=== PATIENT | female | born 2000 | race American Indian/Alaskan Native ===

== ENCOUNTER 2020-04-05 19:52 | Inpatient (IN) | payer MEDICAID ==
[2020-04-05 21:31] LABS: Alanine Aminotransferase 9 units/L (7-56); Albumin 4.1 g/dL (3.9-5); Blood Urea Nitrogen 7 mg/dL (7-17); Calcium 9.4 mg/dL (8.4-10.2); Hemolysis Index 10
[2020-04-05 21:41] LABS: Bacteria,Urine 2+ /HPF (Negative); Bilirubin,Urine NEG (Negative); Blood,Urine SM (Negative); Color,Urine Yellow (Yellow); Mucus,Urine 1+ /HPF; Urobilinogen,Urine < 2.0 mg/dL (<2.0)
[2020-04-05 21:43] LABS: WBC,Urine > 182.0 /HPF (0.0-6.0)
[2020-04-05 21:47] LABS: Hemoglobin 8.7 gm/dl (10.1-14.3); Mean Corpuscular HGB Conc 31 % (30-34); Mean Corpuscular Volume 82 fl (79-97); Platelet Count 528 K/mm3 (140-440); Red Blood Count 3.42 M/mm3 (3.65-5.03); Red Cell Distribution Width 17.4 % (13.2-15.2)
[2020-04-05 21:56] LABS: BUN/Creatinine Ratio 12
[2020-04-05 22:42] LABS: Basophils % (Manual) 0 % (0.0-1.8); Total Cells Counted 100
[2020-04-05 22:47] LABS: Anisocytosis Few; Hypochromasia 1+
[2020-04-06] MEDS ORDERED: SODIUM CHLORIDE 0.9% 1000 ML IV SOLN IV ONE (01:50)
[2020-04-06] MEDS ORDERED: cefTRIAXone/NS 1 GM/50 ML 1 GM/50 ML BAG IV STA (01:53)
--- NOTE | 2020-04-06 03:28 | Cat Scan Report ---
CT ABDOMEN AND PELVIS WITH CONTRAST HISTORY: Pt complains of severe flank pain and abdominal pain. COMPARISON: None. TECHNIQUE: CT images of the abdomen and pelvis were obtained following administration of intravenous contrast. All CT scans at this location are performed using CT dose reduction for ALARA by means of automated exposure control. CONTRAST: 100 ml of intravenous contrast administered. FINDINGS: Lungs/bones: Lung bases are clear. No acute osseous abnormality or significant DJD. Abdomen/pelvis: The liver is enlarged with no focal mass. The gallbladder, spleen, pancreas, adrenal s, kidneys, and proximal GI tract appear unremarkable. The mid to distal small bowel shows mild mucosal enhancement and fluid-filled appearance. Urinary bladder and reproductive organs are unremarkable with small ovarian follicles greatest on the right. No significant pelvic free fluid. No acute colonic abnormality identified. IMPRESSION: 1. Nonspecific appearance of the distal small bowel may be seen with enteritis. Otherwise nothing acu te. Signer Name: Leonardo Farmer MD Signed: 04/06/2020 3:23 AM Workstation Name: [id number]
[2020-04-06] MEDS ORDERED: MAGNESIUM HYDROXIDE (MOM) ORAL LIQD UDC PO PRN (03:30)
[2020-04-06] MEDS ORDERED: ONDANSETRON 4 MG/2 ML INJ IV PRN (03:30)
[2020-04-06] MEDS ORDERED: ACETAMINOPHEN 325 MG TAB PO PRN (03:30)
--- NOTE | 2020-04-06 03:43 | History and Physical Report ---
History of Present Illness Date of examination: 04/06/20 Date of admission: 04/06/2020 Chief complaint: Fever Abdominal Pain Generalized body aches and flank pain History of present illness: 19-year-old -[place] female with no significant past medical history presenting to the emergency room today complaining of nausea and vomiting, abdominal pain and fever which started yesterday. Abdominal pain is said to radiate towards the back. She denies any hematuria or dysuria, denies any diarrhea, denies any chest pain or shortness of breath, denies any headache or dizziness. Abdominal pain is said to be constant, no known relieving or exacerbating factor. Patient denies any sick contacts and no recent travel. Denies any contact with anyone with COVID-19. Work-up in the emergency room reveals urinary tract infection. CT of the abdomen and pelvis was unremarkable. Patient has been started on empiric IV antibiotics. Past History Past Medical History: No medical history Past Surgical History: No surgical history Social history: no significant social history Family history: no significant family history Medications and Allergies Allergies Allergy/AdvReac Type Severity Reaction Status Date / Time No Known Allergies Allergy Unverified 04/05/20 20:14 Active Meds: Active Medications Acetaminophen (Tylenol) 650 mg PO Q4H PRN PRN Reason: Pain MILD(1-3)/Fever >100.5/MCKEON Heparin Sodium (Porcine) (Heparin) 5,000 unit SUB-Q Q8HR BALJIT Sodium Chloride (Nacl 0.9% 1000 Ml) 1,000 mls @ 125 mls/hr IV DIRECT BALJIT Ceftriaxone Sodium (Rocephin/Ns 1 Gm/50 Ml) 1 gm in 50 mls @ 100 mls/hr IV Q24HR BALJIT; Protocol Magnesium Hydroxide (Milk Of Magnesia) 30 ml PO Q4H PRN PRN Reason: Constipation Morphine Sulfate (Morphine) 2 mg IV Q4H PRN PRN Reason: Pain, Moderate (4-6) Ondansetron HCl (Zofran) 4 mg IV Q8H PRN PRN Reason: Nausea And Vomiting Sodium Chloride (Sodium Chloride Flush Syringe 10 Ml) 10 ml IV BID BALJIT Sodium Chloride (Sodium Chloride Flush Syringe 10 Ml) 10 ml IV PRN PRN PRN Reason: LINE FLUSH Review of Systems Constitutional: fever, no chills Cardiovascular: no chest pain, no palpitations Respiratory: no cough, no excessive sputum Gastrointestinal: abdominal pain, nausea, no vomiting, no diarrhea Genitourinary Female: flank pain, dysuria, no pelvic pain, no hematuria, no nocturia Musculoskeletal: no neck pain, no low back pain Integumentary: no rash, no pruritis Neurological: no headaches, no confusion Psychiatric: no anxiety, no depression Exam - Constitutional Vitals: Temp Pulse Resp BP Pulse Ox 99.5 F 126 H 17 104/64 99 04/05/20 20:13 04/05/20 20:13 04/05/20 20:13 04/05/20 20:13 04/05/20 20:13 General appearance: Present: no acute distress, well-nourished - EENT Eyes: Present: PERRL, EOM intact. Absent: scleral icterus ENT: hearing intact, clear oral mucosa, dentition normal - Neck Neck: Present: supple, normal ROM - Respiratory Respiratory effort: normal Respiratory: bilateral: CTA - Cardiovascular Rhythm: regular Heart Sounds: Present: S1 & S2. Absent: gallop, systolic murmur, diastolic murmur, rub - Extremities Extremities: no ischemia, pulses intact, pulses symmetrical, No edema, Full ROM Peripheral Pulses: within normal limits - Abdominal General gastrointestinal: Present: soft, tender (Suprapubic tenderness.), non- distended, normal bowel sounds, mass, other (Mild costovertebral angle tenderness.) - Integumentary Integumentary: Present: clear, warm, dry - Musculoskeletal Musculoskeletal: strength equal bilaterally - Psychiatric Psychiatric: appropriate mood/affect, intact judgment & insight, memory intact, cooperative - Neurologic Neurologic: CNII-XII intact, no focal deficits, moves all extremities Results - Labs CBC & Chem 7: 04/05/20 20:33 04/05/20 20:33 Labs: Abnormal lab results 04/05/20 04/05/20 04/05/20 Range/Units 20:21 20:33 20:33 WBC 25.0 H (4.5-11.0) K/mm3 RBC 3.42 L (3.65-5.03) M/mm3 Hgb 8.7 L (10.1-14.3) gm/dl Hct 28.0 L (30.3-42.9) % MCH 26 L (28-32) pg RDW 17.4 H (13.2-15.2) % Plt Count 528 H (140-440) K/mm3 Seg Neuts % (Manual) 89.0 H (40.0-70.0) % Lymphocytes % (Manual) 6.0 L (13.4-35.0) % Seg Neutrophils # Man 22.3 H (1.8-7.7) K/mm3 Monocytes # (Manual) 1.0 H (0.0-0.8) K/mm3 Glucose 107 H (65-100) mg/dL Lipase (13-60) units/L Urine WBC (Auto) > 182.0 H (0.0-6.0) /HPF U Epithel Cells (Auto) 32.0 H (0-13.0) /HPF 04/05/20 Range/Units 20:33 WBC (4.5-11.0) K/mm3 RBC (3.65-5.03) M/mm3 Hgb (10.1-14.3) gm/dl Hct (30.3-42.9) % MCH (28-32) pg RDW (13.2-15.2) % Plt Count (140-440) K/mm3 Seg Neuts % (Manual) (40.0-70.0) % Lymphocytes % (Manual) (13.4-35.0) % Seg Neutrophils # Man (1.8-7.7) K/mm3 Monocytes # (Manual) (0.0-0.8) K/mm3 Glucose (65-100) mg/dL Lipase 8 L (13-60) units/L Urine WBC (Auto) (0.0-6.0) /HPF U Epithel Cells (Auto) (0-13.0) /HPF Assessment and Plan - Patient Problems (1) UTI (urinary tract infection) Current Visit: Yes Status: Acute Plan to address problem: Patient placed on empiric IV antibiotics. We will await urine culture result. (2) Sepsis Current Visit: Yes Status: Acute Plan to address problem: Secondary to the UTI. Patient placed on IV antibiotics and IV fluid. We will await culture results (3) DVT prophylaxis Current Visit: Yes Status: Acute Plan to address problem: Patient placed on subcutaneous heparin. (4) Full code status Current Visit: Yes Status: Acute
--- NOTE | 2020-04-06 04:23 | Emergency Department Report ---
ED Abdominal Pain HPI - General Chief Complaint: Abdominal Pain Stated Complaint: ABDOMINAL PAIN Time Seen by Provider: 04/06/20 01:07 Source: patient Mode of arrival: Ambulatory Limitations: No Limitations - History of Present Illness MD Complaint: abdominal pain -: Gradual, days(s) (Started yesterday) Location: diffuse Radiation: none, back Severity: mild Quality: aching, dull Consistency: constant Worsens With: nothing Associated Symptoms: nausea, vomiting (Few episodes), chills, dysuria. denies: diarrhea, constipation, hematochezia, melena, anorexia, syncope - Related Data Allergies Allergy/AdvReac Type Severity Reaction Status Date / Time No Known Allergies Allergy Unverified 04/05/20 20:14 ED Review of Systems ROS: Stated complaint: ABDOMINAL PAIN Other details as noted in HPI Comment: All other systems reviewed and negative ED Past Medical Hx - Past Medical History Previous Medical History?: No - Surgical History Past Surgical History?: No - Social History Smoking Status: Never Smoker Substance Use Type: Alcohol, Marijuana ED Physical Exam - General Limitations: No Limitations General appearance: alert, in no apparent distress - Head Head exam: Present: atraumatic, normocephalic - Eye Eye exam: Present: normal appearance - ENT ENT exam: Present: mucous membranes moist - Neck Neck exam: Present: normal inspection - Respiratory Respiratory exam: Present: normal lung sounds bilaterally. Absent: respiratory distress - Cardiovascular Cardiovascular Exam: Present: regular rate, normal rhythm. Absent: systolic murmur, diastolic murmur, rubs, gallop - GI/Abdominal GI/Abdominal exam: Present: soft, tenderness, normal bowel sounds, other (No Rovsing, no Guerrero Izquierdo, no Shay sign). Absent: guarding, rebound, organomegaly, bruit, pulsatile mass - Extremities Exam Extremities exam: Present: normal inspection - Back Exam Back exam: Present: normal inspection, CVA tenderness (L) - Neurological Exam Neurological exam: Present: alert, oriented X3, CN II-XII intact, normal gait - Psychiatric Psychiatric exam: Present: normal affect, normal mood - Skin Skin exam: Present: warm, dry, intact, normal color. Absent: rash ED Course Vital Signs 04/05/20 20:13 Temperature 99.5 F Pulse Rate 126 H Respiratory 17 Rate Blood Pressure 104/64 O2 Sat by Pulse 99 Oximetry - Consultations Consultation #1: 04/06/20 04:24 This case was discussed with the hospitalist who agreed to admit for sepsis/urosepsis ED Medical Decision Making - Lab Data Result diagrams: 04/05/20 20:33 04/05/20 20:33 Lab Results 04/05/20 04/05/20 04/05/20 Range/Units 20:21 20:33 20:33 WBC 25.0 H (4.5-11.0) K/mm3 RBC 3.42 L (3.65-5.03) M/mm3 Hgb 8.7 L (10.1-14.3) gm/dl Hct 28.0 L (30.3-42.9) % MCV 82 (79-97) fl MCH 26 L (28-32) pg MCHC 31 (30-34) % RDW 17.4 H (13.2-15.2) % Plt Count 528 H (140-440) K/mm3 Add Manual Diff Complete Total Counted 100 Seg Neutrophils % Well Drill Operator Seg Neuts % (Manual) 89.0 H (40.0-70.0) % Band Neutrophils % 0 % Lymphocytes % (Manual) 6.0 L (13.4-35.0) % Reactive Lymphs % (Man) 0 % Monocytes % (Manual) 4.0 (0.0-7.3) % Eosinophils % (Manual) 1.0 (0.0-4.3) % Basophils % (Manual) 0 (0.0-1.8) % Metamyelocytes % 0 % Myelocytes % 0 % Promyelocytes % 0 % Blast Cells % 0 % Nucleated RBC % Not Reportable Seg Neutrophils # Man 22.3 H (1.8-7.7) K/mm3 Band Neutrophils # 0.0 K/mm3 Lymphocytes # (Manual) 1.5 (1.2-5.4) K/mm3 Abs React Lymphs (Man) 0.0 K/mm3 Monocytes # (Manual) 1.0 H (0.0-0.8) K/mm3 Eosinophils # (Manual) 0.3 (0.0-0.4) K/mm3 Basophils # (Manual) 0.0 (0.0-0.1) K/mm3 Metamyelocytes # 0.0 K/mm3 Myelocytes # 0.0 K/mm3 Promyelocytes # 0.0 K/mm3 Blast Cells # 0.0 K/mm3 WBC Morphology Not Reportable Hypersegmented Neuts Not Reportable Hyposegmented Neuts Not Reportable Hypogranular Neuts Not Reportable Smudge Cells Not Reportable Toxic Granulation Not Reportable Toxic Vacuolation Not Reportable Dohle Bodies Not Reportable Pelger-Huet Anomaly Not Reportable Eric Rods Not Reportable Platelet Estimate Not Reportable Clumped Platelets Not Reportable Plt Clumps, EDTA Not Reportable Large Platelets Not Reportable Giant Platelets Not Reportable Platelet Satelliting Not Reportable Plt Morphology Comment Not Reportable RBC Morphology Not Reportable Dimorphic RBCs Not Reportable Polychromasia Not Reportable Hypochromasia 1+ Poikilocytosis Not Reportable Anisocytosis Few Microcytosis Not Reportable Macrocytosis Not Reportable Spherocytes Not Reportable Pappenheimer Bodies Not Reportable Sickle Cells Not Reportable Target Cells Not Reportable Tear Drop Cells Not Reportable Ovalocytes Not Reportable Helmet Cells Not Reportable [place] Bodies Not Reportable [place] Rings Not Reportable [place] Cells Not Reportable Bite Cells Not Reportable Crenated Cell Not Reportable Elliptocytes Not Reportable Acanthocytes (Spur) Not Reportable Rouleaux Not Reportable Hemoglobin C Crystals Not Reportable Schistocytes Not Reportable Malaria parasites Not Reportable Hiro Bodies Not Reportable Hem Pathologist Commnt No Sodium 140 (137-145) mmol/L Potassium 3.9 (3.6-5.0) mmol/L Chloride 104.3 (98-107) mmol/L Carbon Dioxide 24 (22-30) mmol/L Anion Gap 16 mmol/L BUN 7 (7-17) mg/dL Creatinine 0.6 (0.6-1.2) mg/dL Estimated GFR > 60 ml/min BUN/Creatinine Ratio 12 % Glucose 107 H (65-100) mg/dL Lactic Acid (0.7-2.0) mmol/L Calcium 9.4 (8.4-10.2) mg/dL Total Bilirubin 0.30 (0.1-1.2) mg/dL AST 12 (5-40) units/L ALT 9 (7-56) units/L Alkaline Phosphatase 73 (35-129) units/L Total Protein 7.6 (6.3-8.2) g/dL Albumin 4.1 (3.9-5) g/dL Albumin/Globulin Ratio 1.2 % Lipase (13-60) units/L HCG, Qual (Negative) Urine Color Yellow (Yellow) Urine Turbidity Cloudy (Clear) Urine pH 5.0 (5.0-7.0) Ur Specific [place] 1.020 (1.003-1.030) Urine Protein 100 mg/dl (Negative) mg/dL Urine Glucose (UA) Neg (Negative) mg/dL Urine Ketones Neg (Negative) mg/dL Urine Blood Sm (Negative) Urine Nitrite Neg (Negative) Urine Bilirubin Neg (Negative) Urine Urobilinogen < 2.0 (<2.0) mg/dL Ur Leukocyte Esterase Lg (Negative) Urine WBC (Auto) > 182.0 H (0.0-6.0) /HPF Urine RBC (Auto) 22.0 (0.0-6.0) /HPF U Epithel Cells (Auto) 32.0 H (0-13.0) /HPF Urine Bacteria (Auto) 2+ (Negative) /HPF Urine WBC Clumps 2+ /HPF Urine Mucus 1+ /HPF Urine Yeast (Budding) 1+ /HPF 04/05/20 04/05/20 04/06/20 Range/Units 20:33 20:33 01:57 WBC (4.5-11.0) K/mm3 RBC (3.65-5.03) M/mm3 Hgb (10.1-14.3) gm/dl Hct (30.3-42.9) % MCV (79-97) fl MCH (28-32) pg MCHC (30-34) % RDW (13.2-15.2) % Plt Count (140-440) K/mm3 Add Manual Diff Total Counted Seg Neutrophils % Seg Neuts % (Manual) (40.0-70.0) % Band Neutrophils % % Lymphocytes % (Manual) (13.4-35.0) % Reactive Lymphs % (Man) % Monocytes % (Manual) (0.0-7.3) % Eosinophils % (Manual) (0.0-4.3) % Basophils % (Manual) (0.0-1.8) % Metamyelocytes % % Myelocytes % % Promyelocytes % % Blast Cells % % Nucleated RBC % Seg Neutrophils # Man (1.8-7.7) K/mm3 Band Neutrophils # K/mm3 Lymphocytes # (Manual) (1.2-5.4) K/mm3 Abs React Lymphs (Man) K/mm3 Monocytes # (Manual) (0.0-0.8) K/mm3 Eosinophils # (Manual) (0.0-0.4) K/mm3 Basophils # (Manual) (0.0-0.1) K/mm3 Metamyelocytes # K/mm3 Myelocytes # K/mm3 Promyelocytes # K/mm3 Blast Cells # K/mm3 WBC Morphology Hypersegmented Neuts Hyposegmented Neuts Hypogranular Neuts Smudge Cells Toxic Granulation Toxic Vacuolation Dohle Bodies Pelger-Huet Anomaly Eric Rods Platelet Estimate Clumped Platelets Plt Clumps, EDTA Large Platelets Giant Platelets Platelet Satelliting Plt Morphology Comment RBC Morphology Dimorphic RBCs Polychromasia Hypochromasia Poikilocytosis Anisocytosis Microcytosis Macrocytosis Spherocytes Pappenheimer Bodies Sickle Cells Target Cells Tear Drop Cells Ovalocytes Helmet Cells [place] Bodies [place] Rings Yessica Cells Bite Cells Crenated Cell Elliptocytes Acanthocytes (Spur) Rouleaux Hemoglobin C Crystals Schistocytes Malaria parasites Hiro Bodies Hem Pathologist Commnt Sodium (137-145) mmol/L Potassium (3.6-5.0) mmol/L Chloride (98-107) mmol/L Carbon Dioxide (22-30) mmol/L Anion Gap mmol/L BUN (7-17) mg/dL Creatinine (0.6-1.2) mg/dL Estimated GFR ml/min BUN/Creatinine Ratio % Glucose (65-100) mg/dL Lactic Acid 1.40 (0.7-2.0) mmol/L Calcium (8.4-10.2) mg/dL Total Bilirubin (0.1-1.2) mg/dL AST (5-40) units/L ALT (7-56) units/L Alkaline Phosphatase (35-129) units/L Total Protein (6.3-8.2) g/dL Albumin (3.9-5) g/dL Albumin/Globulin Ratio % Lipase 8 L (13-60) units/L HCG, Qual Negative (Negative) Urine Color (Yellow) Urine Turbidity (Clear) Urine pH (5.0-7.0) Ur Specific [place] (1.003-1.030) Urine Protein (Negative) mg/dL Urine Glucose (UA) (Negative) mg/dL Urine Ketones (Negative) mg/dL Urine Blood (Negative) Urine Nitrite (Negative) Urine Bilirubin (Negative) Urine Urobilinogen (<2.0) mg/dL Ur Leukocyte Esterase (Negative) Urine WBC (Auto) (0.0-6.0) /HPF Urine RBC (Auto) (0.0-6.0) /HPF U Epithel Cells (Auto) (0-13.0) /HPF Urine Bacteria (Auto) (Negative) /HPF Urine WBC Clumps /HPF Urine Mucus /HPF Urine Yeast (Budding) /HPF - Radiology Data Radiology results: report reviewed [facility] [address] [place] [address] Cat Scan Report Signed Patient: FIOR GONZALEZ MR#: [id number] : 2000 Acct:[id number] Age/Sex: 19 / F ADM Date: 04/05/20 Loc: ED Attending Dr: Ordering Physician: GURDEEP MARTINES Date of Service: 04/06/20 Procedure(s): CT abdomen pelvis w con Accession Number(s): [id number] cc: GURDEEP MARTINES CT ABDOMEN AND PELVIS WITH CONTRAST HISTORY: Pt complains of severe flank pain and abdominal pain. COMPARISON: None. TECHNIQUE: CT images of the abdomen and pelvis were obtained following administration of intravenous contrast. All CT scans at this location are performed using CT dose reduction for ALARA by means of automated exposure control. CONTRAST: 100 ml of intravenous contrast administered. FINDINGS: Lungs/bones: Lung bases are clear. No acute osseous abnormality or significant DJD. Abdomen/pelvis: The liver is enlarged with no focal mass. The gallbladder, spleen, pancreas, adrenals, kidneys, and proximal GI tract appear unremarkable. The mid to distal small bowel shows mild mucosal enhancement and fluid-filled appearance. Urinary bladder and reproductive organs are unremarkable with small ovarian follicles greatest on the right. No significant pelvic free fluid. No acute colonic abnormality identified. IMPRESSION: 1. Nonspecific appearance of the distal small bowel may be seen with enteritis. Otherwise nothing acute. Signer Name: Leonardo Farmer MD Signed: 04/06/2020 3:23 AM Workstation Name: [id number] Transcribed By: AMBER Dictated By: Leonardo Farmer MD Electronically Authenticated By: Leonardo Farmer MD Signed Date/Time: 04/06/20322 DD/ 0 TD/TT: - Medical Decision Making 19-year-old female diffuse abdominal pain every 2 of them for the last few days associated with some dysuria and was found to have a urinary tract infection. Subsequent to the urinary tract infection she was found to have leukocytosis tachycardia temperature consistent with that of sepsis/urosepsis. Due to the amount of pain she is requesting her abdomen CT scan was obtained to evaluate for potential causes of the discomfort has been continuing to progress over the past few days and worsening fashion. CT scan was formed however no specific causes with exception of possible right. No surgical causes were discovered. Case was discussed with the hospitalist who agrees with the need for admission. She was started on fluids antibiotics. Very low suspicion for appendicitis, ischemic bowel, bowel causes other than that which was already discovered. Critical care attestation.: If time is entered above; I have spent that time in minutes in the direct care of this critically ill patient, excluding procedure time. ED Disposition Clinical Impression: UTI (urinary tract infection), Sepsis Disposition: [id number] OP ADMIT IP TO THIS HOSP Is pt being admited?: Yes Does the pt Need Aspirin: No Condition: Stable Instructions: Abdominal Pain (ED) Referrals: PRIMARY CAREMD [Primary Care Provider] - 3-5 Days
[2020-04-06] MEDS: HEPARIN 5,000 UNIT/1 ML VIAL SUB-Q SCH ×3 (05:55→22:10)
[2020-04-06] MEDS: MORPHINE 2 MG/1 ML INJ IV PRN ×2 (05:55→16:21)
[2020-04-06] MEDS: SODIUM CHLORIDE 0.9% 1000 ML 1,000 ML IV SCH ×2 (06:39→16:24)
[2020-04-06] MEDS: cefTRIAXone/NS 1 GM/50 ML 1 GM/50 ML BAG IV SCH (09:57)
--- NOTE | 2020-04-06 18:53 | Progress Note ---
Assessment and Plan Assessment and plan: 19-year-old -[place] female with no significant past medical history presenting to the emergency room today complaining of nausea and vomiting, abdominal pain and fever which started yesterday. Abdominal pain is said to radiate towards the back. She denies any hematuria or dysuria, denies any d iarrhea, denies any chest pain or shortness of breath, denies any headache or dizziness. Abdominal pain is said to be constant, no known relieving or exacerbating factor. Patient denies any sick contacts and no recent travel. Denies any contact with anyone with COVID-19. Work-up in the emergency room reveals urinary tract infection. CT of the abdomen and pelvis shows enteritis otherwise was unremarkable. Patient has been started on empiric IV antibiotics. 04/06: Patient with acute cystitis and also with enteritis we will proceed with adding Abx, pain control, IV hydration. GI consult and stool studies (1) UTI (urinary tract infection) Current Visit: Yes Status: Acute Plan to address problem: Patient placed on empiric IV antibiotics. We will await urine culture result. (2) Sepsis Current Visit: Yes Status: Acute Plan to address problem: Secondary to the UTI. Patient placed on IV antibiotics and IV fluid. We will await culture results (3) Enteritis: Start antibiotics (4) DVT prophylaxis Current Visit: Yes Status: Acute Plan to address problem: Patient placed on subcutaneous heparin. (4) Full code status Current Visit: Yes Status: Acute History Interval history: Patient seen and examined still with severe abdominal pain. Denies any prior episode of this. Hospitalist Physical - Physical exam Narrative exam: VITAL SIGNS: Reviewed. GENERAL: The patient appears normally developed, Vital signs as documented. HEAD: No signs of head trauma. EYES: Pupils are equal. Extraocular motions intact. EARS: Hearing grossly intact. MOUTH: Oropharynx is normal. NECK: No adenopathy, no JVD. CHEST: Chest with clear breath sounds bilaterally. No wheezes, rales, or rhonchi. CARDIAC: Regular rate and rhythm. S1 and S2, without murmurs, gallops, or rubs. VASCULAR: No Edema. Peripheral pulses normal and equal in all extremities. ABDOMEN: Soft, tender although nondistended, guarding.. No rebound or guarding, and no masses palpated. Bowel Sounds normal. MUSCULOSKELETAL: Good range of motion of all major joints. Extremities without clubbing, cyanosis or edema. NEUROLOGIC EXAM: Alert and oriented x 3 No focal sensory or strength deficits. Speech normal. Follows commands. PSYCHIATRIC: Mood normal. SKIN: detail exam as documented in skin assessment - Constitutional Vitals: Temp Pulse Resp BP Pulse Ox 98.7 F 105 H 18 101/64 100 04/06/20 16:10 04/06/20 16:10 04/06/20 16:10 04/06/20 16:10 04/06/20 16:10 General appearance: Present: no acute distress, well-nourished Results - Labs CBC & Chem 7: 04/07/20 04:37 04/07/20 04:37 Labs: Laboratory Last Values WBC 25.0 K/mm3 (4.5-11.0) H 04/05/20 20:33 RBC 3.42 M/mm3 (3.65-5.03) L 04/05/20 20:33 Hgb 8.7 gm/dl (10.1-14.3) L 04/05/20 20:33 Hct 28.0 % (30.3-42.9) L 04/05/20 20:33 MCV 82 fl (79-97) 04/05/20 20:33 MCH 26 pg (28-32) L 04/05/20 20:33 MCHC 31 % (30-34) 04/05/20 20:33 RDW 17.4 % (13.2-15.2) H 04/05/20 20:33 Plt Count 528 K/mm3 (140-440) H 04/05/20 20:33 Add Manual Diff Complete 04/05/20 20:33 Total Counted 100 04/05/20 20:33 Seg Neutrophils % Offal Trimmer 04/05/20 20:33 Seg Neuts % (Manual) 89.0 % (40.0-70.0) H 04/05/20 20:33 Band Neutrophils % 0 % 04/05/20 20:33 Lymphocytes % (Manual) 6.0 % (13.4-35.0) L 04/05/20 20:33 Reactive Lymphs % (Man) 0 % 04/05/20 20:33 Monocytes % (Manual) 4.0 % (0.0-7.3) 04/05/20 20:33 Eosinophils % (Manual) 1.0 % (0.0-4.3) 04/05/20 20:33 Basophils % (Manual) 0 % (0.0-1.8) 04/05/20 20:33 Metamyelocytes % 0 % 04/05/20 20:33 Myelocytes % 0 % 04/05/20 20:33 Promyelocytes % 0 % 04/05/20 20:33 Blast Cells % 0 % 04/05/20 20:33 Nucleated RBC % Not Reportable 04/05/20 20:33 Seg Neutrophils # Man 22.3 K/mm3 (1.8-7.7) H 04/05/20 20:33 Band Neutrophils # 0.0 K/mm3 04/05/20 20:33 Lymphocytes # (Manual) 1.5 K/mm3 (1.2-5.4) 04/05/20 20:33 Abs React Lymphs (Man) 0.0 K/mm3 04/05/20 20:33 Monocytes # (Manual) 1.0 K/mm3 (0.0-0.8) H 04/05/20 20:33 Eosinophils # (Manual) 0.3 K/mm3 (0.0-0.4) 04/05/20 20:33 Basophils # (Manual) 0.0 K/mm3 (0.0-0.1) 04/05/20 20:33 Metamyelocytes # 0.0 K/mm3 04/05/20 20:33 Myelocytes # 0.0 K/mm3 04/05/20 20:33 Promyelocytes # 0.0 K/mm3 04/05/20 20:33 Blast Cells # 0.0 K/mm3 04/05/20 20:33 WBC Morphology Not Reportable 04/05/20 20:33 Hypersegmented Neuts Not Reportable 04/05/20 20:33 Hyposegmented Neuts Not Reportable 04/05/20 20:33 Hypogranular Neuts Not Reportable 04/05/20 20:33 Smudge Cells Not Reportable 04/05/20 20:33 Toxic Granulation Not Reportable 04/05/20 20:33 Toxic Vacuolation Not Reportable 04/05/20 20:33 Dohle Bodies Not Reportable 04/05/20 20:33 Pelger-Huet Anomaly Not Reportable 04/05/20 20:33 Eric Rods Not Reportable 04/05/20 20:33 Platelet Estimate Not Reportable 04/05/20 20:33 Clumped Platelets Not Reportable 04/05/20 20:33 Plt Clumps, EDTA Not Reportable 04/05/20 20:33 Large Platelets Not Reportable 04/05/20 20:33 Giant Platelets Not Reportable 04/05/20 20:33 Platelet Satelliting Not Reportable 04/05/20 20:33 Plt Morphology Comment Not Reportable 04/05/20 20:33 RBC Morphology Not Reportable 04/05/20 20:33 Dimorphic RBCs Not Reportable 04/05/20 20:33 Polychromasia Not Reportable 04/05/20 20:33 Hypochromasia 1+ 04/05/20 20:33 Poikilocytosis Not Reportable 04/05/20 20:33 Anisocytosis Few 04/05/20 20:33 Microcytosis Not Reportable 04/05/20 20:33 Macrocytosis Not Reportable 04/05/20 20:33 Spherocytes Not Reportable 04/05/20 20:33 Pappenheimer Bodies Not Reportable 04/05/20 20:33 Sickle Cells Not Reportable 04/05/20 20:33 Target Cells Not Reportable 04/05/20 20:33 Tear Drop Cells Not Reportable 04/05/20 20:33 Ovalocytes Not Reportable 04/05/20 20:33 Helmet Cells Not Reportable 04/05/20 20:33 Michaels-[place] Bodies Not Reportable 04/05/20 20:33 Cl[place]ax Rings Not Reportable 04/05/20 20:33 [place] Cells Not Reportable 04/05/20 20:33 Bite Cells Not Reportable 04/05/20 20:33 Crenated Cell Not Reportable 04/05/20 20:33 Elliptocytes Not Reportable 04/05/20 20:33 Acanthocytes (Spur) Not Reportable 04/05/20 20:33 Rouleaux Not Reportable 04/05/20 20:33 Hemoglobin C Crystals Not Reportable 04/05/20 20:33 Schistocytes Not Reportable 04/05/20 20:33 Malaria parasites Not Reportable 04/05/20 20:33 Hiro Bodies Not Reportable 04/05/20 20:33 Hem Pathologist Commnt No 04/05/20 20:33 Sodium 140 mmol/L (137-145) 04/05/20 20:33 Potassium 3.9 mmol/L (3.6-5.0) 04/05/20 20:33 Chloride 104.3 mmol/L (98-107) 04/05/20 20:33 Carbon Dioxide 24 mmol/L (22-30) 04/05/20 20:33 Anion Gap 16 mmol/L 04/05/20 20:33 BUN 7 mg/dL (7-17) 04/05/20 20:33 Creatinine 0.6 mg/dL (0.6-1.2) 04/05/20 20:33 Estimated GFR > 60 ml/min 04/05/20 20:33 BUN/Creatinine Ratio 12 % 04/05/20 20:33 Glucose 107 mg/dL (65-100) H 04/05/20 20:33 Lactic Acid 1.40 mmol/L (0.7-2.0) 04/06/20 04:22 Calcium 9.4 mg/dL (8.4-10.2) 04/05/20 20:33 Total Bilirubin 0.30 mg/dL (0.1-1.2) 04/05/20 20:33 AST 12 units/L (5-40) 04/05/20 20:33 ALT 9 units/L (7-56) 04/05/20 20:33 Alkaline Phosphatase 73 units/L (35-129) 04/05/20 20:33 Total Protein 7.6 g/dL (6.3-8.2) 04/05/20 20: Albumin 4.1 g/dL (3.9-5) 04/05/20 20:33 Albumin/Globulin Ratio 1.2 % 04/05/20 20:33 Lipase 8 units/L (13-60) L 04/05/20 20:33 HCG, Qual Negative (Negative) 04/05/20 20:33 Urine Color Yellow (Yellow) 04/05/20 20: Urine Turbidity Cloudy (Clear) 04/05/20 20: Urine pH 5.0 (5.0-7.0) 04/05/20 20:21 Ur Specific [place] 1.020 (1.003-1.030) 04/05/20 20: Urine Protein 100 mg/dl mg/dL (Negative) 04/05/20 20:21 Urine Glucose (UA) Neg mg/dL (Negative) 04/05/20 20:21 Urine Ketones Neg mg/dL (Negative) 04/05/20 20:21 Urine Blood Sm (Negative) 04/05/20 20:21 Urine Nitrite Neg (Negative) 04/05/20 20:21 Urine Bilirubin Neg (Negative) 04/05/20 20:21 Urine Urobilinogen < 2.0 mg/dL (<2.0) 04/05/20 20:21 Ur Leukocyte Esterase Lg (Negative) 04/05/20 20:21 Urine WBC (Auto) > 182.0 /HPF (0.0-6.0) H 04/05/20 20:21 Urine RBC (Auto) 22.0 /HPF (0.0-6.0) 04/05/20 20:21 U Epithel Cells (Auto) 32.0 /HPF (0-13.0) H 04/05/20 20:21 Urine Bacteria (Auto) 2+ /HPF (Negative) 04/05/20 20:21 Urine WBC Clumps 2+ /HPF 04/05/20 20:21 Urine Mucus 1+ /HPF 04/05/20 20:21 Urine Yeast (Budding) 1+ /HPF 04/05/20 20:21 Microbiology: Microbiology 04/06/20 01:57 Peripheral/Venous Blood Culture - Preliminary Culture in Progress 04/06/20 03:26 Peripheral/Venous Blood Culture - Preliminary Culture in Progress Barros/IV: Voiding Method Toilet IV Catheter Type [Right Wrist] INT / Saline Lock Active Medications - Current Medications Current Medications: Generic Name Dose Route Start Last Admin Trade Name Freq PRN Reason Stop Dose Admin Acetaminophen 650 mg 04/06/20 03:30 Tylenol PO Q4H PRN Pain MILD(1-3)/Fever >100.5/MCKEON Heparin Sodium (Porcine) 5,000 unit 04/06/20 06:00 04/06/20 13:35 Heparin SUB-Q 5,000 unit Q8HR BALJIT Administration Sodium Chloride 1,000 mls @ 125 mls/hr 04/06/20 03:30 04/06/20 16:24 Nacl 0.9% 1000 Ml IV 125 mls/hr DIRECT BALJIT Administration Ceftriaxone Sodium 1 gm in 50 mls @ 100 mls/hr 04/06/20 10:00 04/06/20 10:27 Rocephin/Ns 1 Gm/50 Ml IV Infused Q24HR BALJIT Infusion Protocol Magnesium Hydroxide 30 ml 04/06/20 03:30 Milk Of Magnesia PO Q4H PRN Constipation Morphine Sulfate 2 mg 04/06/20 03:30 04/06/20 16:21 Morphine IV 2 mg Q4H PRN Administration Pain, Moderate (4-6) Ondansetron HCl 4 mg 04/06/20 03:30 Zofran IV Q8H PRN Nausea And Vomiting Sodium Chloride 10 ml 04/06/20 10:00 04/06/20 09:57 Sodium Chloride Flush Syringe 10 Ml IV 10 ml BID BALJIT Administration Sodium Chloride 10 ml 04/06/20 03:30 04/06/20 06:40 Sodium Chloride Flush Syringe 10 Ml IV 10 ml PRN PRN Administration LINE FLUSH
[2020-04-06] MEDS ORDERED: SODIUM CHLORIDE 0.9% 1000 ML 1,000 ML IV ONE (20:28)
[2020-04-06] MEDS: metroNIDAZOLE/NS 500 MG/100 ML 500 MG/100 ML BAG IV SCH (22:09)
[2020-04-07 05:24] LABS: Basophils % (Auto) 0.2 % (0.0-1.8); Eosinophils # (Auto) 0.2 K/mm3 (0.0-0.4); Eosinophils % (Auto) 1.3 % (0.0-4.3); Hematocrit 25.3 % (30.3-42.9); Hemoglobin 8.2 gm/dl (10.1-14.3); Lymphocytes # (Auto) 1.9 K/mm3 (1.2-5.4); Lymphocytes % (Auto) 12.9 % (13.4-35.0); Mean Corpuscular HGB Conc 33 % (30-34); Mean Corpuscular Volume 81 fl (79-97); Monocytes # (Auto) 0.7 K/mm3 (0.0-0.8); Monocytes % (Auto) 4.8 % (0.0-7.3); Platelet Count 458 K/mm3 (140-440); Red Cell Distribution Width 17.2 % (13.2-15.2)
[2020-04-07 05:34] LABS: INR 1.21 (0.87-1.13)
[2020-04-07 05:40] LABS: Alanine Aminotransferase 6 units/L (7-56); Albumin 3.3 g/dL (3.9-5); Blood Urea Nitrogen 4 mg/dL (7-17); Calcium 8.9 mg/dL (8.4-10.2); Hemolysis Index 0
[2020-04-07 05:45] LABS: BUN/Creatinine Ratio 10
[2020-04-07] MEDS: HEPARIN 5,000 UNIT/1 ML VIAL SUB-Q SCH ×3 (05:55→21:02)
[2020-04-07] MEDS: metroNIDAZOLE/NS 500 MG/100 ML 500 MG/100 ML BAG IV SCH ×3 (05:55→21:02)
--- NOTE | 2020-04-07 06:17 | Progress Note ---
Assessment and Plan Assessment and plan: 19-year-old -[place] female with no significant past medical history presenting to the emergency room today complaining of nausea and vomiting, abdominal pain and fever which started yesterday. Abdominal pain is said to radiate towards the back. She denies any hematuria or dysuria, denies any d iarrhea, denies any chest pain or shortness of breath, denies any headache or dizziness. Abdominal pain is said to be constant, no known relieving or exacerbating factor. Patient denies any sick contacts and no recent travel. Denies any contact with anyone with COVID-19. Work-up in the emergency room reveals urinary tract infection. CT of the abdomen and pelvis shows enteritis otherwise was unremarkable. Patient has been started on empiric IV antibiotics. 04/06: Patient with acute cystitis and also with enteritis we will proceed with adding Abx, pain control, IV hydration. GI consult and stool studies 04/07: White count is improving. Continue antibiotics while awaiting other studies. Anticipate discharge tomorrow (1) UTI (urinary tract infection) Current Visit: Yes Status: Acute Plan to address problem: Patient placed on empiric IV antibiotics. We will await urine culture result. (2) Sepsis Current Visit: Yes Status: Acute Plan to address problem: Secondary to the UTI. Patient placed on IV antibiotics and IV fluid. We will await culture results (3) Enteritis: Start antibiotics (4) DVT prophylaxis Current Visit: Yes Status: Acute Plan to address problem: Patient placed on subcutaneous heparin. (4) Full code status Current Visit: Yes Status: Acute History Interval history: Patient seen and examined still with severe abdominal pain. Denies any prior episode of this. reports improvement Hospitalist Physical - Physical exam Narrative exam: VITAL SIGNS: Reviewed. GENERAL: The patient appears normally developed, Vital signs as documented. HEAD: No signs of head trauma. EYES: Pupils are equal. Extraocular motions intact. EARS: Hearing grossly intact. MOUTH: Oropharynx is normal. NECK: No adenopathy, no JVD. CHEST: Chest with clear breath sounds bilaterally. No wheezes, rales, or r honchi. CARDIAC: Regular rate and rhythm. S1 and S2, without murmurs, gallops, or rubs. VASCULAR: No Edema. Peripheral pulses normal and equal in all extremities. ABDOMEN: Soft, tender although nondistended, guarding.. No rebound or guarding, and no masses palpated. Bowel Sounds normal. MUSCULOSKELETAL: Good range of motion of all major joints. Extremities without clubbing, cyanosis or edema. NEUROLOGIC EXAM: Alert and oriented x 3 No focal sensory or strength deficits. Speech normal. Follows commands. PSYCHIATRIC: Mood normal. SKIN: detail exam as documented in skin assessment - Constitutional Vitals: Temp Pulse Resp BP Pulse Ox 98.6 F 86 20 103/66 96 04/07/20 04:49 04/07/20 04:49 04/07/20 04:49 04/07/20 04:47 04/07/20 04:49 General appearance: Present: no acute distress, well-nourished Results - Labs CBC & Chem 7: 04/07/20 04:37 04/07/20 04:37 Labs: Laboratory Last Values WBC 14.8 K/mm3 (4.5-11.0) H 04/07/20 04:37 RBC 3.10 M/mm3 (3.65-5.03) L 04/07/20 04:37 Hgb 8.2 gm/dl (10.1-14.3) L 04/07/20 04:37 Hct 25.3 % (30.3-42.9) L 04/07/20 04:37 MCV 81 fl (79-97) 04/07/20 04:37 MCH 26 pg (28-32) L 04/07/20 04:37 MCHC 33 % (30-34) 04/07/20 04:37 RDW 17.2 % (13.2-15.2) H 04/07/20 04:37 Plt Count 458 K/mm3 (140-440) H 04/07/20 04:37 Lymph % (Auto) 12.9 % (13.4-35.0) L 04/07/20 04:37 [place] % (Auto) 4.8 % (0.0-7.3) 04/07/20 04:37 Eos % (Auto) 1.3 % (0.0-4.3) 04/07/20 04:37 Baso % (Auto) 0.2 % (0.0-1.8) 04/07/20 04:37 Lymph # (Auto) 1.9 K/mm3 (1.2-5.4) 04/07/20 04:37 [place] # (Auto) 0.7 K/mm3 (0.0-0.8) 04/07/20 04:37 Eos # (Auto) 0.2 K/mm3 (0.0-0.4) 04/07/20 04:37 Baso # (Auto) 0.0 K/mm3 (0.0-0.1) 04/07/20 04:37 Add Manual Diff Complete 04/05/20 20:33 Total Counted 100 04/05/20 20:33 Seg Neutrophils % 80.8 % (40.0-70.0) H 04/07/20 04:37 Seg Neuts % (Manual) 89.0 % (40.0-70.0) H 04/05/20 20:33 Band Neutrophils % 0 % 04/05/20 20:33 Lymphocytes % (Manual) 6.0 % (13.4-35.0) L 04/05/20 20:33 Reactive Lymphs % (Man) 0 % 04/05/20 20:33 Monocytes % (Manual) 4.0 % (0.0-7.3) 04/05/20 20:33 Eosinophils % (Manual) 1.0 % (0.0-4.3) 04/05/20 20:33 Basophils % (Manual) 0 % (0.0-1.8) 04/05/20 20:33 Metamyelocytes % 0 % 04/05/20 20:33 Myelocytes % 0 % 04/05/20 20:33 Promyelocytes % 0 % 04/05/20 20:33 Blast Cells % 0 % 04/05/20 20:33 Nucleated RBC % Not Reportable 04/05/20 20:33 Seg Neutrophils # 12.0 K/mm3 (1.8-7.7) H 04/07/20 04:37 Seg Neutrophils # Man 22.3 K/mm3 (1.8-7.7) H 04/05/20 20:33 Band Neutrophils # 0.0 K/mm3 04/05/20 20:33 Lymphocytes # (Manual) 1.5 K/mm3 (1.2-5.4) 04/05/20 20:33 Abs React Lymphs (Man) 0.0 K/mm3 04/05/20 20:33 Monocytes # (Manual) 1.0 K/mm3 (0.0-0.8) H 04/05/20 20:33 Eosinophils # (Manual) 0.3 K/mm3 (0.0-0.4) 04/05/20 20:33 Basophils # (Manual) 0.0 K/mm3 (0.0-0.1) 04/05/20 20:33 Metamyelocytes # 0.0 K/mm3 04/05/20 20:33 Myelocytes # 0.0 K/mm3 04/05/20 20:33 Promyelocytes # 0.0 K/mm3 04/05/20 20:33 Blast Cells # 0.0 K/mm3 04/05/20 20:33 WBC Morphology Not Reportable 04/05/20 20:33 Hypersegmented Neuts Not Reportable 04/05/20 20:33 Hyposegmented Neuts Not Reportable 04/05/20 20:33 Hypogranular Neuts Not Reportable 04/05/20 20:33 Smudge Cells Not Reportable 04/05/20 20:33 Toxic Granulation Not Reportable 04/05/20 20:33 Toxic Vacuolation Not Reportable 04/05/20 20:33 Dohle Bodies Not Reportable 04/05/20 20:33 Pelger-Huet Anomaly Not Reportable 04/05/20 20:33 Eric Rods Not Reportable 04/05/20 20:33 Platelet Estimate Not Reportable 04/05/20 20:33 Clumped Platelets Not Reportable 04/05/20 20:33 Plt Clumps, EDTA Not Reportable 04/05/20 20:33 Large Platelets Not Reportable 04/05/20 20:33 Giant Platelets Not Reportable 04/05/20 20:33 Platelet Satelliting Not Reportable 04/05/20 20:33 Plt Morphology Comment Not Reportable 04/05/20 20:33 RBC Morphology Not Reportable 04/05/20 20:33 Dimorphic RBCs Not Reportable 04/05/20 20:33 Polychromasia Not Reportable 04/05/20 20:33 Hypochromasia 1+ 04/05/20 20:33 Poikilocytosis Not Reportable 04/05/20 20:33 Anisocytosis Few 04/05/20 20:33 Microcytosis Not Reportable 04/05/20 20:33 Macrocytosis Not Reportable 04/05/20 20:33 Spherocytes Not Reportable 04/05/20 20:33 Pappenheimer Bodies Not Reportable 04/05/20 20:33 Sickle Cells Not Reportable 04/05/20 20:33 Target Cells Not Reportable 04/05/20 20:33 Tear Drop Cells Not Reportable 04/05/20 20:33 Ovalocytes Not Reportable 04/05/20 20:33 Helmet Cells Not Reportable 04/05/20 20:33 Michaels-[place] Bodies Not Reportable 04/05/20 20:33 [place] Rings Not Reportable 04/05/20 20:33 Yessica Cells Not Reportable 04/05/20 20:33 Bite Cells Not Reportable 04/05/20 20:33 Crenated Cell Not Reportable 04/05/20 20:33 Elliptocytes Not Reportable 04/05/20 20:33 Acanthocytes (Spur) Not Reportable 04/05/20 20:33 Rouleaux Not Reportable 04/05/20 20:33 Hemoglobin C Crystals Not Reportable 04/05/20 20:33 Schistocytes Not Reportable 04/05/20 20:33 Malaria parasites Not Reportable 04/05/20 20:33 Hiro Bodies Not Reportable 04/05/20 20:33 Hem Pathologist Commnt No 04/05/20 20:33 PT 15.1 Sec. (12.2-14.9) H 04/07/20 04:37 INR 1.21 (0.87-1.13) H 04/07/20 04:37 Sodium 140 mmol/L (137-145) 04/07/20 04:37 Potassium 3.7 mmol/L (3.6-5.0) 04/07/20 04:37 Chloride 107.4 mmol/L (98-107) H 04/07/20 04:37 Carbon Dioxide 23 mmol/L (22-30) 04/07/20 04:37 Anion Gap 13 mmol/L 04/07/20 04:37 BUN 4 mg/dL (7-17) L 04/07/20 04:37 Creatinine 0.4 mg/dL (0.6-1.2) L 04/07/20 04:37 Estimated GFR > 60 ml/min 04/07/20 04:37 BUN/Creatinine Ratio 10 % 04/07/20 04:37 Glucose 93 mg/dL (65-100) 04/07/20 04:37 Lactic Acid 1.40 mmol/L (0.7-2.0) 04/06/20 04:22 Calcium 8.9 mg/dL (8.4-10.2) 04/07/20 04:37 Total Bilirubin 0.20 mg/dL (0.1-1.2) 04/07/20 04:37 AST 9 units/L (5-40) 04/07/20 04:37 ALT 6 units/L (7-56) L 04/07/20 04:37 Alkaline Phosphatase 64 units/L (35-129) 04/07/20 04:37 Total Protein 6.5 g/dL (6.3-8.2) 04/07/20 04:37 Albumin 3.3 g/dL (3.9-5) L 04/07/20 04:37 Albumin/Globulin Ratio 1.0 % 04/07/20 04:37 Lipase 8 units/L (13-60) L 04/05/20 20:33 HCG, Qual Negative (Negative) 04/05/20 20:33 Urine Color Yellow (Yellow) 04/05/20 20:21 Urine Turbidity Cloudy (Clear) 04/05/20 20:21 Urine pH 5.0 (5.0-7.0) 04/05/20 20:21 Ur Specific [place] 1.020 (1.003-1.030) 04/05/20 20:21 Urine Protein 100 mg/dl mg/dL (Negative) 04/05/20 20:21 Urine Glucose (UA) Neg mg/dL (Negative) 04/05/20 20:21 Urine Ketones Neg mg/dL (Negative) 04/05/20 20:21 Urine Blood Sm (Negative) 04/05/20 20:21 Urine Nitrite Neg (Negative) 04/05/20 20:21 Urine Bilirubin Neg (Negative) 04/05/20 20: Urine Urobilinogen < 2.0 mg/dL (<2.0) 04/05/20 20:21 Ur Leukocyte Esterase Lg (Negative) 04/05/20 20:21 Urine WBC (Auto) > 182.0 /HPF (0.0-6.0) H 04/05/20 20: Urine RBC (Auto) 22.0 /HPF (0.0-6.0) 04/05/20 20:21 U Epithel Cells (Auto) 32.0 /HPF (0-13.0) H 04/05/20 20:21 Urine Bacteria (Auto) 2+ /HPF (Negative) 04/05/20 20:21 Urine WBC Clumps 2+ /HPF 04/05/20 20:21 Urine Mucus 1+ /HPF 04/05/20 20:21 Urine Yeast (Budding) 1+ /HPF 04/05/20 20:21 Microbiology: Microbiology 04/06/20 01:57 Peripheral/Venous Blood Culture - Preliminary Culture in Progress 04/06/20 03:26 Peripheral/Venous Blood Culture - Preliminary Culture in Progress Barros/IV: Voiding Method Toilet IV Catheter Type [Right Wrist] INT / Saline Lock Active Medications - Current Medications Current Medications: Generic Name Dose Route Start Last Admin Trade Name Freq PRN Reason Stop Dose Admin Acetaminophen 650 mg 04/06/20 03:30 Tylenol PO Q4H PRN Pain MILD(1-3)/Fever >100.5/MCKEON Heparin Sodium (Porcine) 5,000 unit 04/06/20 06:00 04/07/20 05:55 Heparin SUB-Q 5,000 unit Q8HR BALJIT Administration Sodium Chloride 1,000 mls @ 125 mls/hr 04/06/20 03:30 04/06/20 16:24 Nacl 0.9% 1000 Ml IV 125 mls/hr DIRECT BALJIT Administration Ceftriaxone Sodium 1 gm in 50 mls @ 100 mls/hr 04/06/20 10:00 04/06/20 10:27 Rocephin/Ns 1 Gm/50 Ml IV Infused Q24HR BALJIT Infusion Protocol Levofloxacin/Dextrose 500 mg in 100 mls @ 100 mls/hr 04/06/20 21:00 04/06/20 22:09 Levaquin 500mg/100ml IV 100 mls/hr Q24HR BALJIT Administration Protocol Metronidazole 500 mg in 100 mls @ 100 mls/hr 04/06/20 22:00 04/07/20 05:55 Flagyl 500 Mg/100 Ml IV 100 mls/hr Q8HR BALJIT Administration Protocol Magnesium Hydroxide 30 ml 04/06/20 03:30 Milk Of Magnesia PO Q4H PRN Constipation Morphine Sulfate 2 mg 04/06/20 03:30 04/06/20 16:21 Morphine IV 2 mg Q4H PRN Administration Pain, Moderate (4-6) Ondansetron HCl 4 mg 04/06/20 03:30 Zofran IV Q8H PRN Nausea And Vomiting Sodium Chloride 10 ml 04/06/20 10:00 04/06/20 22:10 Sodium Chloride Flush Syringe 10 Ml IV 10 ml BID BALJIT Administration Sodium Chloride 10 ml 04/06/20 03:30 04/06/20 06:40 Sodium Chloride Flush Syringe 10 Ml IV 10 ml PRN PRN Administration LINE FLUSH
[2020-04-07] MEDS: cefTRIAXone/NS 1 GM/50 ML 1 GM/50 ML BAG IV SCH (09:23)
--- NOTE | 2020-04-07 10:35 | Gastroenterology Consultation ---
History of Present Illness - Reason for Consult Consult date: 04/07/20 enteritis Requesting physician: RAMIRO ZAPATA - History of Present Illness The patient is a 19 yo aaf who presents with 2-3 day history of generalized abd pain. pt reports recent onset of abd pain, worse with po intake, + dysuria. no prior similar gi symptoms. found to have UTI on admission and CT scan showed signs of non-specific enteritis. Denies diarrhea, bowel habit changes, or gi bleeding. reports improvement in abd pain since admission. Past History Past Medical History: No medical history Past Surgical History: No surgical history Social history: no significant social history Family history: no significant family history Medications and Allergies Allergies Allergy/AdvReac Type Severity Reaction Status Date / Time No Known Allergies Allergy Unverified 04/05/20 20:14 Active Meds: Active Medications Acetaminophen (Tylenol) 650 mg PO Q4H PRN PRN Reason: Pain MILD(1-3)/Fever >100.5/MCKEON Heparin Sodium (Porcine) (Heparin) 5,000 unit SUB-Q Q8HR BALJIT Last Admin: 04/07/20 05:55 Dose: 5,000 unit Documented by: Sodium Chloride (Nacl 0.9% 1000 Ml) 1,000 mls @ 125 mls/hr IV DIRECT BALJIT Last Admin: 04/06/20 16:24 Dose: 125 mls/hr Documented by: Ceftriaxone Sodium (Rocephin/Ns 1 Gm/50 Ml) 1 gm in 50 mls @ 100 mls/hr IV Q24HR BALJIT; Protocol Last Admin: 04/07/20 09:23 Dose: 100 mls/hr Documented by: Levofloxacin/Dextrose (Levaquin 500mg/100ml) 500 mg in 100 mls @ 100 mls/hr IV Q24HR BALJIT; Protocol Last Admin: 04/06/20 22:09 Dose: 100 mls/hr Documented by: Metronidazole (Flagyl 500 Mg/100 Ml) 500 mg in 100 mls @ 100 mls/hr IV Q8HR BALJIT; Protocol Last Admin: 04/07/20 05:55 Dose: 100 mls/hr Documented by: Magnesium Hydroxide (Milk Of Magnesia) 30 ml PO Q4H PRN PRN Reason: Constipation Morphine Sulfate (Morphine) 2 mg IV Q4H PRN PRN Reason: Pain, Moderate (4-6) Last Admin: 04/06/20 16:21 Dose: 2 mg Documented by: Ondansetron HCl (Zofran) 4 mg IV Q8H PRN PRN Reason: Nausea And Vomiting Sodium Chloride (Sodium Chloride Flush Syringe 10 Ml) 10 ml IV BID BALJIT Last Admin: 04/06/20 22:10 Dose: 10 ml Documented by: Sodium Chloride (Sodium Chloride Flush Syringe 10 Ml) 10 ml IV PRN PRN PRN Reason: LINE FLUSH Last Admin: 04/06/20 06:40 Dose: 10 ml Documented by: Reviewed/updated patient's home and current medications Review of Systems - Review of Systems All systems: negative (per HPI) Exam - Constitutional Vital Signs: Temp Pulse Resp BP Pulse Ox 98.6 F 77 16 107/68 100 04/07/20 08:13 04/07/20 08:13 04/07/20 08:13 04/07/20 08:13 04/07/20 08:13 General appearance: no acute distress - EENT Eyes: PERRL, EOM intact - Respiratory Respiratory effort: normal Respiratory: bilateral: CTA - Cardiovascular Rhythm: regular Heart Sounds: Present: S1 & S2 - Gastrointestinal General gastrointestinal: Present: soft, non-tender, non-distended - Integumentary Integumentary: Present: clear, warm - Neurologic Neurological: alert and oriented x3 - Psychiatric Psychiatric: appropriate mood/affect - Labs CBC & Chem 7: 04/07/20 04:37 04/07/20 04:37 Lab Results: Laboratory Results - last 24 hr 04/07/20 04/07/20 04/07/20 04:37 04:37 04:37 WBC 14.8 H RBC 3.10 L Hgb 8.2 L Hct 25.3 L MCV 81 MCH 26 L MCHC 33 RDW 17.2 H Plt Count 458 H Lymph % (Auto) 12.9 L Collin % (Auto) 4.8 Eos % (Auto) 1.3 Baso % (Auto) 0.2 Lymph # (Auto) 1.9 Collin # (Auto) 0.7 Eos # (Auto) 0.2 Baso # (Auto) 0.0 Seg Neutrophils % 80.8 H Seg Neutrophils # 12.0 H PT 15.1 H INR 1.21 H Sodium 140 Potassium 3.7 Chloride 107.4 H Carbon Dioxide 23 Anion Gap 13 BUN 4 L Creatinine 0.4 L Estimated GFR > 60 BUN/Creatinine Ratio 10 Glucose 93 Calcium 8.9 Total Bilirubin 0.20 AST 9 ALT 6 L Alkaline Phosphatase 64 Total Protein 6.5 Albumin 3.3 L Albumin/Globulin Ratio 1.0 - Imaging CT Scan: report reviewed Assessment and Plan 1. Abdominal pain with ? enteritis on ct scan - unclear significance of possible enteritis. denies diarrhea/bowel habit changes. suspect abd pain from UTI given associated dysuria and improvement with abx. okay to resume/advance diet as tolerated. no further inpt recommendations from gi at this time. Pt can f/u in GI clinic in 1 month. will sign off, please call as needed or with questions.
[2020-04-08] MEDS: SODIUM CHLORIDE 0.9% 1000 ML 1,000 ML IV SCH (04:32)
[2020-04-08] MEDS: metroNIDAZOLE/NS 500 MG/100 ML 500 MG/100 ML BAG IV SCH (06:24)
[2020-04-08] MEDS: HEPARIN 5,000 UNIT/1 ML VIAL SUB-Q SCH (06:24)
[2020-04-08 08:35] VITALS: BP 106/71
--- NOTE | 2020-04-08 10:15 | Discharge Summary ---
Providers - Providers Date of Admission: 04/06/20 20:28 Attending physician: RAMIRO ZAPATA MD 04/06/20 20:49 Consult to Physician [CONS] Routine Comment: Consulting Provider: JOAQUIM TOBIAS Physician Instructions: Reason For Exam: enteritis Primary care physician: GURPREET OROSCO MD Hospitalization Condition: Stable Hospital course: 19-year-old -French female with no significant past medical history presenting to the emergency room today complaining of nausea and vomiting, abdominal pain and fever which started yesterday. Abdominal pain is said to radiate towards the back. She denies any hematuria or dysuria, denies any diarrhea, denies any chest pain or shortness of breath, denies any headache or dizziness. Abdominal pain is said to be constant, no known relieving or exacerbating factor. Patient denies any sick contacts and no recent travel. Denies any contact with anyone with COVID-19. Work-up in the emergency room reveals urinary tract infection. CT of the abdomen and pelvis shows enteritis otherwise was unremarkable. Patient has been started on empiric IV antibiotics. 04/06: Patient with acute cystitis and also with enteritis we will proceed with adding Abx, pain control, IV hydration. GI consult and stool studies 04/07: White count is improving. Continue antibiotics while awaiting other studies. Anticipate discharge tomorrow 04/08: Clinically improved, tolerating diet. Will discharge with oral antibiotics and recommend follow with GI outpatient. (1) UTI (urinary tract infection) Current Visit: Yes Status: Acute Plan to address problem: Patient placed on empiric IV antibiotics. We will await urine culture result. (2) Sepsis Current Visit: Yes Status: Acute Plan to address problem: Secondary to the UTI. Patient placed on IV antibiotics and IV fluid. We will await culture results (3) Enteritis: Start antibiotics Disposition: DC- TO HOME OR SELFCARE Exam - Constitutional Vitals: Temp Pulse Resp BP Pulse Ox 98.7 F 77 16 106/71 100 04/08/20 08:28 04/08/20 08:28 04/08/20 08:28 04/08/20 08:28 04/08/20 08:28 Plan Activity: advance as tolerated, fall precautions Diet: low fat Special Instructions: record daily weights, record daily BP diary Follow up with: PRIMARY CAREMD [Primary Care Provider] - 3-5 Days JOAQUIM TOBIAS MD [Staff Physician] - 7 Days Prescriptions: Ciprofloxacin HCl [Ciprofloxacin TAB] 500 mg PO Q12HR #10 tab metroNIDAZOLE [Flagyl] 500 mg PO Q8HR #14 tablet traMADoL [Ultram 50 MG tab] 50 mg PO Q6HR PRN #14 tablet PRN Reason: Pain
== END 2020-04-08 11:18 | disposition home or self-care (01) | DRG 872 ==
LOC: ED 19:52 → 4A 04-06 03:30 → OBSVTOIN 04-06 20:28
PROVIDERS: ADMIT Internal Medicine Geriatric Medicine; ATTEND Internal Medicine
DX: A41.9 Sepsis, unspecified organism (principal); K52.9 Noninfective gastroenteritis and colitis, unspecified; N30.00 Acute cystitis without hematuria
CPT/HCPCS: 36415; 74177; 80053; 81001; 82140; 83690; 84703; 85007; 85025; 85610; 87040; 87086; 96374; 96375; 96376; G0378; J0696; J1644; J1956; J2270; J7030; Q9967

== ENCOUNTER 2020-06-01 03:41 | Emergency (ER) | payer MEDICAID ==
[2020-06-01 04:02] VITALS: BP 115/76
--- NOTE | 2020-06-01 06:13 | Emergency Department Report ---
ED Female HPI - General Chief complaint: Abdominal Pain Stated complaint: DISCHARGE/ABDOMINAL PAIN Time Seen by Provider: 06/01/20 04:48 Source: patient Mode of arrival: Ambulatory Limitations: No Limitations - History of Present Illness Initial comments: 19-year-old female present emergency department complaining of pelvic irritation, vaginal discharge and occasional vaginal lesions for the past few days after having unprotected sex with a suspicion for STD. Reports mild pelvic pain. Reports no nausea no vomiting no fevers, chills, sweats MD Complaint: vaginal discharge Location: suprapubic Radiation: suprapubic Severity: mild, moderate Quality: dull Consistency: constant Improves with: none Worsens with: none Are you Now?: No Associated Symptoms: vaginal discharge, dysuria. denies: nausea/vomiting, fever/chills, headaches, hematuria, rash, seizure, shortness of breath, syncope, weakness - Related Data Previous Rx's Medication Instructions Recorded Last Taken Type Ciprofloxacin HCl [Ciprofloxacin 500 mg PO Q12HR #10 tab 04/08/20 Unknown Rx TAB] metroNIDAZOLE [Flagyl] 500 mg PO Q8HR #14 tablet 04/08/20 Unknown Rx traMADoL [Ultram 50 MG tab] 50 mg PO Q6HR PRN #14 tablet 04/08/20 Unknown Rx metroNIDAZOLE [Flagyl] 500 mg PO Q12HR #14 tab 06/01/20 Unknown Rx Allergies Allergy/AdvReac Type Severity Reaction Status Date / Time No Known Allergies Allergy Unverified 04/05/20 20:14 ED Review of Systems ROS: Stated complaint: DISCHARGE/ABDOMINAL PAIN Other details as noted in HPI Comment: All other systems reviewed and negative ED Past Medical Hx - Past Medical History Previous Medical History?: No Hx Congestive Heart Failure: No Hx Diabetes: No Hx Asthma: No Hx COPD: No Hx HIV: No - Surgical History Past Surgical History?: No - Social History Smoking Status: Never Smoker Substance Use Type: Alcohol, Marijuana - Medications Home Medications: Home Medications Medication Instructions Recorded Confirmed Last Taken Type Ciprofloxacin HCl [Ciprofloxacin 500 mg PO Q12HR #10 tab 04/08/20 Unknown Rx TAB] metroNIDAZOLE [Flagyl] 500 mg PO Q8HR #14 tablet 04/08/20 Unknown Rx traMADoL [Ultram 50 MG tab] 50 mg PO Q6HR PRN #14 tablet 04/08/20 Unknown Rx metroNIDAZOLE [Flagyl] 500 mg PO Q12HR #14 tab 06/01/20 Unknown Rx ED Physical Exam - General Limitations: No Limitations General appearance: alert, in no apparent distress - Head Head exam: Present: atraumatic, normocephalic - Eye Eye exam: Present: normal appearance, PERRL, EOMI Pupils: Present: normal accommodation - ENT ENT exam: Present: normal exam, normal orophraynx, mucous membranes moist, TM's normal bilaterally - Neck Neck exam: Present: normal inspection, full ROM - Respiratory Respiratory exam: Present: normal lung sounds bilaterally. Absent: respiratory distress, wheezes, rales, chest wall tenderness, accessory muscle use - Cardiovascular Cardiovascular Exam: Present: regular rate, normal rhythm. Absent: systolic murmur, diastolic murmur, rubs, gallop - GI/Abdominal GI/Abdominal exam: Present: soft, normal bowel sounds. Absent: tenderness, guarding, hyperactive bowel sounds, hypoactive bowel sounds - External exam: Present: other (Scarring and stenosis cystic type lesions to the left inguinal region like a healing abscess/boil area) Speculum exam: Present: vaginal discharge Bi-manual exam: Present: normal bi-manual exam - Extremities Exam Extremities exam: Present: normal inspection, normal capillary refill - Back Exam Back exam: Present: normal inspection. Absent: CVA tenderness (R), CVA tenderness (L) - Neurological Exam Neurological exam: Present: alert, oriented X3. Absent: CN II-XII intact - Psychiatric Psychiatric exam: Present: normal affect, normal mood - Skin Skin exam: Present: warm, dry, intact, normal color. Absent: rash ED Course Vital Signs 06/01/20 03:57 Temperature 97.0 F L Pulse Rate 90 Respiratory 18 Rate Blood Pressure 115/76 O2 Sat by Pulse 97 Oximetry Critical care attestation.: If time is entered above; I have spent that time in minutes in the direct care of this critically ill patient, excluding procedure time. ED Disposition Clinical Impression: Bacterial vaginosis Disposition: - TO HOME OR SELFCARE Is pt being admited?: No Does the pt Need Aspirin: No Condition: Stable Instructions: Bacterial Vaginosis, Vaginitis, Bacterial Vaginosis (ED), Abdominal Pain (ED) Additional Instructions: Your chlamydia and gonorrhea test are still pending results should be available within 24 hours Prescriptions: metroNIDAZOLE [Flagyl] 500 mg PO Q12HR #14 tab Referrals: CHANA SUAREZ MD [Staff Physician] - 3-5 Days PRIMARY CARE, [Primary Care Provider] - 3-5 Days Forms: STI Treatment and Prevention
== END 2020-06-01 06:30 | disposition home or self-care (01) ==
LOC: ED 03:41
DX: N76.0 Acute vaginitis (principal); B96.89 Other specified bacterial agents as the cause of diseases classified elsewhere; F12.10 Cannabis abuse, uncomplicated; Z79.899 Other long term (current) drug therapy
CPT/HCPCS: 87210; 87591; 99283

== ENCOUNTER 2021-06-14 09:34 | Observation (INO) | payer MEDICAID ==
[2021-06-14] MEDS ORDERED: SODIUM CHLORIDE 0.9% 500 ML 500 ML IV NR (10:00)
[2021-06-14] MEDS ORDERED: LACTATED RINGERS 1,000 ML IV SCH (10:00)
[2021-06-14] MEDS ORDERED: NalbUPHINE 10 MG/1 ML INJ IV PRN (10:30)
[2021-06-14] MEDS ORDERED: fentaNYL 100 MCG/2 ML INJ IV PRN (10:30)
[2021-06-14] MEDS ORDERED: ACETAMINOPHEN 325 MG TAB PO PRN (10:30)
[2021-06-14] MEDS ORDERED: TERBUTALINE 1 MG/1 ML INJ SUB-Q PRN (10:30)
[2021-06-14] MEDS ORDERED: ePHEDrine SULFATE 50 MG/1 ML INJ IV PRN (10:30)
[2021-06-14 11:25] LABS: Basophils # (Auto) 0.1 K/mm3 (0.0-0.1); Basophils % (Auto) 0.7 % (0.0-1.8); Eosinophils # (Auto) 0.1 K/mm3 (0.0-0.4); Eosinophils % (Auto) 0.9 % (0.0-4.3); Lymphocytes # (Auto) 1.8 K/mm3 (1.2-5.4); Lymphocytes % (Auto) 18.2 % (13.4-35.0); Mean Corpuscular HGB Conc 29 % (30-34); Monocytes # (Auto) 0.5 K/mm3 (0.0-0.8); Monocytes % (Auto) 4.9 % (0.0-7.3); Platelet Count 311 K/mm3 (140-440); Red Blood Count 2.72 M/mm3 (3.65-5.03)
[2021-06-14 11:44] LABS: Hematocrit 17.9 % (30.3-42.9); Hemoglobin 5.2 gm/dl (10.1-14.3); Mean Corpuscular Volume 66 fl (79-97); Red Cell Distribution Width 20.5 % (13.2-15.2)
[2021-06-14] MEDS ORDERED: SODIUM CHLORIDE 0.9% 250ML 250 ML ONE (12:35)
[2021-06-14 16:44] VITALS: BP 120/63
== END 2021-06-14 15:06 | disposition home or self-care (01) ==
LOC: LD 09:34 → INTOOBSV 09:34
PROVIDERS: ADMIT Obstetrics & Gynecology; ATTEND Obstetrics & Gynecology
DX: O99.013 Anemia complicating pregnancy, third trimester (principal); D64.9 Anemia, unspecified; Z3A.34 34 weeks gestation of pregnancy
CPT/HCPCS: 36415; 36430; 85025; 86592; 86850; 86900; 86901; 86920; G0378; G0379; P9016